=== PATIENT | female | born 1985 | race Caucasian/White ===

== ENCOUNTER 2019-01-09 11:28 | Inpatient (IN) | payer OTHER ==
[~2019-01-09] VITALS: Ht 165.1 cm; Wt 71.7 kg
[2019-01-18] MEDS ORDERED: LEVOTHYROXINE25 MCG PO (15:36)
[2019-01-18] MEDS ORDERED: PRENATAL TABLE1 EAC1 PO (15:37)
== END 2019-01-20 14:09 | disposition home or self-care (01) | DRG 807 ==
LOC: SURG-SUITE 01-18 09:10 → LDR 01-18 09:10 → SURG-SUITE 01-18 17:43 → OB/GYN 01-27 13:00
PROVIDERS: ADMIT Obstetrics & Gynecology
PROC: 10E0XZZ Delivery of Products of Conception, External Approach (ICD-10-PCS; principal; 2019-01-18)
PROC: 10907ZC Drainage of Amniotic Fluid, Therapeutic from Products of Conception, Via Natural or Artificial Opening (ICD-10-PCS; 2019-01-18)
PROC: 0W8NXZZ Division of Female Perineum, External Approach (ICD-10-PCS; 2019-01-18)
PROC: 3E033VJ Introduction of Other Hormone into Peripheral Vein, Percutaneous Approach (ICD-10-PCS; 2019-01-18)
PROC: 4A1HXCZ Monitoring of Products of Conception, Cardiac Rate, External Approach (ICD-10-PCS; 2019-01-18)
DX: O80 Encounter for full-term uncomplicated delivery (principal); Z37.0 Single live birth; Z3A.38 38 weeks gestation of pregnancy

== ENCOUNTER 2024-08-17 10:01 | Outpatient (CLI) | payer OTHER ==
[~2024-08-17 10:01] MED LIST: LEVOTHYROXINE25 MCG PO; PRENATAL TABLE1 EAC1 PO
== END 2024-08-17 10:12 | disposition home or self-care (01) ==
LOC: SONOGRAMA 10:01
PROVIDERS: ATTEND Specialist
DX: N84.0 Polyp of corpus uteri (principal)